=== PATIENT | female | born 1960 ===

== ENCOUNTER 2017-06-02 07:56 | Day surgery (SDC) | payer OTHER ==
[2017-05-22 11:32] VITALS: BMI 22.6
[2017-06-02] MEDS ORDERED: Propofol 10 mg/ml Inj (20 ML) ONE (10:57)
[2017-06-02 11:10] VITALS: O2SAT 99
[2017-06-02] MEDS ORDERED: Sodium Chloride 0.9% 1,000 ML IV SCH (11:45)
[2017-06-02 12:20] VITALS: PULSE 62
[2017-06-02 14:48] VITALS: BP 113/67; RESP 18; TEMP 97.9
== END 2017-06-02 14:00 | disposition home or self-care (01) ==
LOC: ENDO 07:56
PROVIDERS: ATTEND Internal Medicine Gastroenterology
DX: K25.4 Chronic or unspecified gastric ulcer with hemorrhage (principal); Z12.11 Encounter for screening for malignant neoplasm of colon; K31.7 Polyp of stomach and duodenum; K29.50 Unspecified chronic gastritis without bleeding; K29.80 Duodenitis without bleeding; K31.9 Disease of stomach and duodenum, unspecified; K64.8 Other hemorrhoids
CPT/HCPCS: 43239; 45378; 88305; 88342; J2704; J7040 ×2